=== PATIENT | male | born 1955 | race Caucasian/White ===

== ENCOUNTER 2020-07-25 23:38 | Inpatient (IN) | payer MEDICAID ==
[~2020-07-25] VITALS: Ht 188 cm; Wt 183.8 kg
[2020-07-26 00:46] LABS: BASOPHILS # (AUTO) 0.1 X10'3 (0-0.2); BASOPHILS % (AUTO) 0.4 % (0-1); EOSINOPHILS # (AUTO) 0.1 X10'3 (0-0.9); EOSINOPHILS % (AUTO) 0.6 % (0-6); HEMATOCRIT 38.1 % (42.0-52.0); HEMOGLOBIN 12.3 g/dl (14.0-17.9); LYMPHOCYTES # (AUTO) 0.7 X10'3 (1.1-4.8); LYMPHOCYTES % (AUTO) 5.7 % (21-51); MEAN CORPUSCULAR HEMOGLOBIN 28.3 PG (27.0-31.0); MEAN CORPUSCULAR HGB CONC 32.3 g/dL (33.0-36.5); MEAN CORPUSCULAR VOLUME 87.9 FL (78-98); MEAN PLATELET VOLUME 8.3 FL (7.4-10.4); MONOCYTES # (AUTO) 0.9 X10'3 (0-0.9); MONOCYTES % (AUTO) 7.5 % (2-12); NEUTROPHILS # (AUTO) 10.2 X10'3 (1.8-7.7); NEUTROPHILS % (AUTO) 85.8 % (42-75); PLATELET COUNT 161 X10'3 (140-440); RED BLOOD COUNT 4.33 X10'6 (4.70-6.10); RED CELL DISTRIBUTION WIDTH 16.7 % (11.5-14.5); WHITE BLOOD COUNT 11.9 X10'3 (4.5-11.0)
[2020-07-26 00:54] LABS: ALANINE AMINOTRANSFERASE 81 U/L (12-78); ALBUMIN 3.2 G/DL (3.4-5.0); ALBUMIN/GLOBULIN RATIO 0.8 (1.1-1.5); ALKALINE PHOSPHATASE 132 IU/L (46-116); ANION GAP 5 (8-16); ASPARTATE AMINO TRANSFERASE 30 U/L (10-37); BILIRUBIN,TOTAL 0.5 MG/DL (0.1-1.0); BLOOD UREA NITROGEN 13 MG/DL (7-18); BUN/CREATININE RATIO 11.2 (5.4-32.0); CALCIUM 8.5 MG/DL (8.5-10.1); CHLORIDE 107 MMOL/L (99-107); CREATININE 1.16 MG/DL (0.60-1.10); GLUCOSE 171 MG/DL (70-104); POTASSIUM 3.5 MMOL/L (3.5-5.1); SODIUM 144 MMOL/L (135-145); TOTAL CARBON DIOXIDE 31.9 MMOL/L (24-32); TOTAL PROTEIN 7.4 G/DL (6.4-8.2); eGFR 64 ML/MIN
[2020-07-26] MEDS ORDERED: methylPREDNISolone sod succ 125mg/2ml vial IV ONE (01:15)
[2020-07-26] MEDS ORDERED: nitroGLYCERIN 0.4mg SUBLingual tab SL PRN (01:15)
[2020-07-26] MEDS ORDERED: nitroGLYCERIN 0.4mg/hour patch TD ONE (01:15)
[2020-07-26] MEDS ORDERED: albuterol 2.5 MG/3 ML nebule NEB ONE (01:15)
[2020-07-26] MEDS ORDERED: furosemide 40mg/4ml inj IV ONE (01:15)
[2020-07-26] MEDS ORDERED: morphine 2 MG/ML inj. syringe IV PRN (01:40)
[2020-07-26] MEDS ORDERED: magnesium 4gm in 100ml NS 100 ML IV PRN (01:40)
[2020-07-26] MEDS ORDERED: acetaminophen 325mg tablet PO PRN ×2 (01:40)
[2020-07-26] MEDS ORDERED: potassium Cl 40MEQ/1/2NS 520ml 520 ML IV PRN ×2 (01:40)
[2020-07-26] MEDS ORDERED: magnesium 2GM in 50ml NS 50 ML IV PRN (01:40)
[2020-07-26] MEDS ORDERED: magnesium Cl slow-release 64mg tablet PO PRN (01:40)
[2020-07-26] MEDS ORDERED: magnesium hydroxide 30ml (MOM) UD suspension PO PRN (01:40)
[2020-07-26] MEDS ORDERED: HYDROcodone/acetaminophen 5mg/325mg tablet PO PRN (01:40)
[2020-07-26] MEDS ORDERED: mag hydrox/Alum hydrox/simeth 30ml oral suspension PO PRN (01:40)
[2020-07-26] MEDS ORDERED: ondansetron/PF 4mg/2ml inj IV PRN (01:40)
[2020-07-26] MEDS ORDERED: potassium Cl 20 mEq SR tablet PO PRN ×2 (01:40)
[2020-07-26] MEDS ORDERED: AMIO200T61 PO (01:58)
[2020-07-26] MEDS ORDERED: ATOR10TA87 PO (01:58)
[2020-07-26] MEDS ORDERED: POTA10TA10 PO (01:58)
[2020-07-26] MEDS ORDERED: LISI40TA13 PO (01:58)
[2020-07-26] MEDS ORDERED: RIVA20TA PO (01:58)
[2020-07-26] MEDS ORDERED: METF500T PO (01:58)
[2020-07-26] MEDS ORDERED: FURO-150 PO (01:58)
[2020-07-26] MEDS ORDERED: METO-467 PO (01:58)
[2020-07-26] MEDS ORDERED: ISOS30TA84 PO (01:58)
[2020-07-26] MEDS ORDERED: BUME0.5T6 PO (01:58)
[2020-07-26] MEDS ORDERED: MESSAGE TO PHARMACY PO ONE (02:35)
[2020-07-26] MEDS ORDERED: glucagon, human recombinant 1mg kit SUBCUT PRN (02:35)
[2020-07-26] MEDS ORDERED: dextrose ORAL solution 15 GM/59 ML bottle PO PRN ×2 (02:35)
[2020-07-26] MEDS ORDERED: dextrose 50%-water 50ml dispensing syringe IV PRN ×2 (02:35)
[2020-07-26 02:46] LABS: ETHANOL < 0.010 GM/DL (0.0-0.010); MAGNESIUM 2.2 MG/DL (1.5-2.4)
[2020-07-26 03:16] LABS: CLARITY,URINE CLEAR (Clear); COLOR,URINE YELLOW (Yellow); GLUCOSE, URINE NEGATIVE (Neg); KETONES,URINE NEGATIVE (Neg); LEUKOCYTE ESTERASE ,URINE TRACE (Neg); NITRITES, URINE NEGATIVE (Neg); OCCULT BLOOD,URINE TRACE-INTACT (Neg); PROTEIN,URINE 100 mg/dl (Neg); UROBILINOGEN,URINE 0.2 E.U/dL (0.2-1.0)
[2020-07-26 03:18] LABS: UA COLLECTION TYPE CLN CATCH MIDSTREAM
[2020-07-26 03:23] LABS: URINE AMPHETAMINE SCREEN NEGATIVE (Neg); URINE BARBITUATE SCREEN NEGATIVE (Neg); URINE BENZODIAZEPINES SCREEN NEGATIVE (Neg); URINE CANNABINOID SCREEN NEGATIVE (Neg); URINE COCAINE SCREEN NEGATIVE (Neg); URINE METHADONE SCREEN NEGATIVE (Neg); URINE OPIATE SCREEN NEGATIVE (Neg); URINE PHENCYCLIDINE SCREEN NEGATIVE (Neg)
[2020-07-26 03:24] LABS: BACTERIA,URINE 3+ /HPF (Neg); MUCUS STRANDS NONE SEEN /LPF (Neg); RBC,URINE 0-2 /HPF (0-2); SQUAMOUS EPITHELIAL CELL,UR NONE SEEN /LPF (FEW)
[2020-07-26] MEDS: albuterol 2.5 MG/3 ML nebule NEB SCH ×2 (04:07→07:43)
[2020-07-26] MEDS ORDERED: METF-900 PO (05:13)
--- NOTE | 2020-07-26 07:10 | NUR ---
Patient in room PCU 3023. I have received report from Magnolia GAN RN and had the opportunity to ask questions and assume patient care.
--- NOTE | 2020-07-26 07:20 | NUR ---
Pt arrived to room 3023B. Pt alert and oriented and vitals WNL. Call light within reach. Will continue to monitor Pt PRN.
--- NOTE | 2020-07-26 07:30 | NUR ---
pt arrive to unit , a/ox3, stable. sats 97 on 4Lnc. LS course with decreased bases. amb to bed from caity bhardwaj, iv patent, put on tele- sr 16,
[2020-07-26] MEDS: K and/or MAG REPLACEMENT MC SCH ×2 (08:00→20:00)
[2020-07-26] MEDS ORDERED: heparin, porcine 5000 units/ml vial SQ SCH (08:00)
[2020-07-26] MEDS ORDERED: metoprolol tartrate 50mg tablet PO SCH (08:00)
[2020-07-26] MEDS: methylPREDNISolone sod succ 125mg/2ml vial IV SCH (08:32)
[2020-07-26] MEDS: furosemide 40mg/4ml inj IV SCH ×2 (08:34→20:00)
[2020-07-26] MEDS: amiodarone 200mg tablet PO SCH (08:35)
[2020-07-26] MEDS: atorvastatin 10mg tablet PO SCH (08:36)
[2020-07-26] MEDS: isosorbide mononitrate 30mg tab.SR.24H PO SCH ×2 (08:37→20:00)
[2020-07-26] MEDS: lisinopril 20mg tablet PO SCH (08:37)
[2020-07-26] MEDS: nicotine 14mg patch - 24hr TD SCH (08:38)
[2020-07-26] MEDS: CefTRIAXone 2gm/D5W 50ml BAG 50 ML IV SCH (08:38)
[2020-07-26] MEDS ORDERED: albuterol 2.5 MG/3 ML nebule NEB PRN (08:55)
[2020-07-26] MEDS ORDERED: ipratropium/albuterol 3ml nebule NEB PRN (08:55)
[2020-07-26] MEDS: azithromycin 250mg tablet PO SCH (09:55)
[2020-07-26 11:00] VITALS: BP 189/88
--- NOTE | 2020-07-26 12:09 | NUR ---
promotional table spacer PAGER ID: [phone] MESSAGE: Re: [place]. Room: 3023B. Pt's heart rate dropped into 30's and back to 60's. This has happened 4 times. Pt seems to be not symptomatic. -[facility] #[id number] -Dr. Mahajan paged concerning Pt's heart rate.
[2020-07-26] MEDS ORDERED: hydrALAZINE 20mg/ml inj. IV PRN (12:25)
[2020-07-26] MEDS ORDERED: ondansetron 4mg rapidly disintigrating tab PO PRN (13:35)
[2020-07-26] MEDS: insulin Lispro (HumaLOG) vial - multi-dose SQ SCH ×2 (13:36→19:03)
[2020-07-26] MEDS: budesonide 0.5mg/2ml UD nebule IH SCH ×2 (14:31→20:31)
[2020-07-26] MEDS ORDERED: rivaroxaban 20mg tablet PO SCH (18:00)
--- NOTE | 2020-07-26 18:00 | NUR ---
Problems reprioritized. Patient report given, questions answered & plan of care reviewed with Cecy MICHELE.
--- NOTE | 2020-07-26 18:00 | NUR ---
[place] documentation: I have reviewed and agree with all interventions, assessments performed and documented by Isaak MICHELE.
--- NOTE | 2020-07-26 18:27 | NUR ---
Problems reprioritized. Patient report given, questions answered & plan of care reviewed with Carroll MICHELE .
[2020-07-26 19:00] VITALS: BP 186/81
[2020-07-26] MEDS: lactobacillus rhamnosus 10,000 MMU CELLS/CAPSULE PO SCH (20:00)
[2020-07-26] MEDS: metoprolol tartrate 25mg tablet PO SCH (20:00)
[2020-07-26] MEDS ORDERED: insulin glargine (Lantus) pen - multi-dose SQ SCH (21:00)
[2020-07-27 03:00] VITALS: BP 140/63
[2020-07-27 06:00] VITALS: BP 157/73
[2020-07-27 07:01] LABS: BASOPHILS % (AUTO) 0.3 % (0-1); EOSINOPHILS % (AUTO) 0 % (0-6); HEMATOCRIT 37.1 % (42.0-52.0); HEMOGLOBIN 12.2 g/dl (14.0-17.9); LYMPHOCYTES # (AUTO) 1.1 X10'3 (1.1-4.8); LYMPHOCYTES % (AUTO) 11.2 % (21-51); MEAN CORPUSCULAR HEMOGLOBIN 28.7 PG (27.0-31.0); MEAN CORPUSCULAR HGB CONC 32.9 g/dL (33.0-36.5); MEAN CORPUSCULAR VOLUME 87.3 FL (78-98); MEAN PLATELET VOLUME 8.6 FL (7.4-10.4); MONOCYTES # (AUTO) 1.1 X10'3 (0-0.9); MONOCYTES % (AUTO) 11.3 % (2-12); NEUTROPHILS # (AUTO) 7.6 X10'3 (1.8-7.7); NEUTROPHILS % (AUTO) 77.2 % (42-75); PLATELET COUNT 171 X10'3 (140-440); RED BLOOD COUNT 4.25 X10'6 (4.70-6.10); RED CELL DISTRIBUTION WIDTH 16.8 % (11.5-14.5); WHITE BLOOD COUNT 9.8 X10'3 (4.5-11.0)
[2020-07-27 07:15] LABS: ALANINE AMINOTRANSFERASE 67 U/L (12-78); ALBUMIN 3.1 G/DL (3.4-5.0); ALBUMIN/GLOBULIN RATIO 0.7 (1.1-1.5); ALKALINE PHOSPHATASE 126 IU/L (46-116); ANION GAP 8 (8-16); ASPARTATE AMINO TRANSFERASE 22 U/L (10-37); BILIRUBIN,TOTAL 0.4 MG/DL (0.1-1.0); BLOOD UREA NITROGEN 19 MG/DL (7-18); BUN/CREATININE RATIO 17.9 (5.4-32.0); CALCIUM 8.8 MG/DL (8.5-10.1); CHLORIDE 105 MMOL/L (99-107); CREATININE 1.06 MG/DL (0.60-1.10); GLUCOSE 98 MG/DL (70-104); MAGNESIUM 2.2 MG/DL (1.5-2.4); POTASSIUM 3.6 MMOL/L (3.5-5.1); SODIUM 146 MMOL/L (135-145); TOTAL CARBON DIOXIDE 33.4 MMOL/L (24-32); TOTAL PROTEIN 7.3 G/DL (6.4-8.2); eGFR 71 ML/MIN
[2020-07-27] MEDS: CefTRIAXone 2gm/D5W 50ml BAG 50 ML IV SCH (08:00)
[2020-07-27] MEDS: K and/or MAG REPLACEMENT MC SCH (08:00)
[2020-07-27] MEDS: nicotine 14mg patch - 24hr TD SCH ×2 (08:00→08:38)
[2020-07-27] MEDS: budesonide 0.5mg/2ml UD nebule IH SCH (08:36)
[2020-07-27] MEDS: methylPREDNISolone sod succ 125mg/2ml vial IV SCH (08:41)
[2020-07-27] MEDS: isosorbide mononitrate 30mg tab.SR.24H PO SCH (08:41)
[2020-07-27] MEDS: amiodarone 200mg tablet PO SCH (08:41)
[2020-07-27] MEDS: atorvastatin 10mg tablet PO SCH (08:41)
[2020-07-27] MEDS: furosemide 40mg/4ml inj IV SCH (08:41)
[2020-07-27] MEDS: metoprolol tartrate 25mg tablet PO SCH (08:42)
[2020-07-27] MEDS: lactobacillus rhamnosus 10,000 MMU CELLS/CAPSULE PO SCH (08:42)
[2020-07-27] MEDS: lisinopril 20mg tablet PO SCH (08:42)
[2020-07-27] MEDS: azithromycin 250mg tablet PO SCH (08:43)
[2020-07-27] MEDS ORDERED: pneumococcal 23-VAL P-sac vacc 25 mcg/0.5ml vial IMVAC ONE (10:00)
[2020-07-27] MEDS ORDERED: AZI25OT PO (10:50)
[2020-07-27] MEDS ORDERED: PRED20TA PO (10:50)
[2020-07-27] MEDS ORDERED: NICO-631 TD (10:50)
[2020-07-27] MEDS ORDERED: LOP25T PO (10:50)
--- NOTE | 2020-07-27 14:08 | NUR ---
DM Consult: Pt A1C 7.0 hx T2DM. Written DM ed w/ RD contact information placed in pt chart. Addendum: 07/27/20 at [address] Amended: Links added.
== END 2020-07-27 16:30 | disposition home or self-care (01) | DRG 133 ==
LOC: ER 23:39 → ED HOLD 07-26 01:39 → PCU 3S 07-26 07:28
PROVIDERS: ADMIT Internal Medicine; ATTEND Family Medicine
DX: J96.20 Acute and chronic respiratory failure, unspecified whether with hypoxia or hypercapnia (principal); I50.43 Acute on chronic combined systolic (congestive) and diastolic (congestive) heart failure; J18.9 Pneumonia, unspecified organism; I11.0 Hypertensive heart disease with heart failure; Z99.81 Dependence on supplemental oxygen; E66.01 Morbid (severe) obesity due to excess calories; I48.91 Unspecified atrial fibrillation; Z79.01 Long term (current) use of anticoagulants; E11.9 Type 2 diabetes mellitus without complications; F17.210 Nicotine dependence, cigarettes, uncomplicated; Z20.822 Contact with and (suspected) exposure to COVID-19; G47.33 Obstructive sleep apnea (adult) (pediatric); R00.1 Bradycardia, unspecified; R74.8 Abnormal levels of other serum enzymes; I35.2 Nonrheumatic aortic (valve) stenosis with insufficiency; J44.0 Chronic obstructive pulmonary disease with (acute) lower respiratory infection; J44.1 Chronic obstructive pulmonary disease with (acute) exacerbation; Z79.84 Long term (current) use of oral hypoglycemic drugs; Z79.899 Other long term (current) drug therapy; Z28.21 Immunization not carried out because of patient refusal; Z91.14 Patient's other noncompliance with medication regimen; Z88.0 Allergy status to penicillin; Z68.43 Body mass index [BMI] 50.0-59.9, adult; Z71.6 Tobacco abuse counseling
CPT/HCPCS: 36415; 71045; 80053; 80305; 80320; 81001; 82948; 83036; 83605; 83735; 83880; 84145; 84484; 85025; 87040; 87077; 87081; 87088; 87186; 87635; 93005; 93306; 94640; 94760; 97116; 97161; 97530; 99285; G0378; J0360; J0696; J1644; J1815; J1940; J2930; J7626